=== PATIENT | female | born 1940 | race Caucasian/White ===

== ENCOUNTER 2018-01-21 15:13 | Emergency (ER) | payer OTHER ==
[~2018-01-21] VITALS: Ht 162.6 cm; Wt 61.2 kg
--- NOTE | 2018-01-21 15:13 | NUR ---
ADMIT PT IN RM 1A , A 77 YO FEMALE FROM HOME WITH A CHIEF C/O A SUDDEN CHANGE OF THOUGHT PROCESS FOR A FEW MINUTES. AWAKE, ALERT AND ORIENTEDX3. SPEECH IS CLEAR, NO NEUR0 DEFFECIT NOTED. DENIES ANY HEADACHE NOTED.
--- NOTE | 2018-01-21 15:20 | NUR ---
PT IS A DIFFICULT STICK, TRIED IV START 2X BUT INFILTRATES EASILY.
--- NOTE | 2018-01-21 15:20 | NUR ---
EKG DONE AT THE BEDSIDE. SR, NO ECTOPY. NO CHEST PAINS NOTED.
--- NOTE | 2018-01-21 15:30 | NUR ---
SEEN AND EXAMINED BY DR MILIAN WITH NEW ORDERS.
[2018-01-21] MEDS ORDERED: [UNRECOGNIZED DRUG - REMARK] (15:43)
[2018-01-21] MEDS ORDERED: [UNRECOGNIZED DRUG - REMARK] (15:43)
[2018-01-21] MEDS ORDERED: [UNRECOGNIZED DRUG - REMARK] (15:43)
[2018-01-21] MEDS ORDERED: [UNRECOGNIZED DRUG - REMARK] (15:43)
[2018-01-21] MEDS ORDERED: [UNRECOGNIZED DRUG - REMARK] (15:43)
[2018-01-21] MEDS ORDERED: [UNRECOGNIZED DRUG - REMARK] (15:43)
[2018-01-21] MEDS ORDERED: [UNRECOGNIZED DRUG - REMARK] (15:43)
[2018-01-21] MEDS ORDERED: LOSARTAN (15:43)
[2018-01-21] MEDS ORDERED: [UNRECOGNIZED DRUG - OTHER] (15:43)
[2018-01-21] MEDS ORDERED: [UNRECOGNIZED DRUG - REMARK] (15:43)
[2018-01-21] MEDS ORDERED: [UNRECOGNIZED DRUG - REMARK] (15:43)
[2018-01-21] MEDS ORDERED: [UNRECOGNIZED DRUG - REMARK] (15:43)
[2018-01-21] MEDS ORDERED: [UNRECOGNIZED DRUG - REMARK] (15:43)
--- NOTE | 2018-01-21 15:55 | NUR ---
[facility] IS ST[facility].
[2018-01-21 15:59] LABS: BASOPHILS # (AUTO) 0.1 K/uL (0.0-8.0); EOSINOPHILS # (AUTO) 0.1 K/uL (0.0-0.7); EOSINOPHILS % (AUTO) 1.6 % (0.0-7.0); HEMOGLOBIN 11.6 g/dL (10.9-14.3); LYMPHOCYTES # (AUTO) 2.1 K/uL (20.0-40.0); LYMPHOCYTES % (AUTO) 34.4 % (20.5-51.5); MEAN CORPUSCULAR HEMOGLOBIN 32.9 uug (24.7-32.8); MEAN CORPUSCULAR HGB CONC 35 g/dL (32.3-35.6); MEAN CORPUSCULAR VOLUME 93.8 fL (75.5-95.3); MONOCYTES # (AUTO) 0.6 K/uL (2.0-10.0); MONOCYTES % (AUTO) 10.1 % (0.0-11.0); NEUTROPHILS # (AUTO) 3.2 K/uL (1.8-8.9); NEUTROPHILS % (AUTO) 52.9 % (38.5-71.5); PLATELET COUNT (AUTO) 282 K/uL (179-408); RED BLOOD CELL COUNT(AUTO) 3.52 MIL/uL (3.63-4.92); WHITE BLOOD COUNT (AUTO) 6.1 K/uL (3.8-11.8)
[2018-01-21 16:03] LABS: CARBON DIOXIDE 28 mmol/L (21-32); CHLORIDE 104 mmol/L (98-107); CREATININE 1.2 mg/dL (0.6-1.3); GLUCOSE 101 mg/dL (74-106); POTASSIUM 4.4 mmol/L (3.5-5.1); UREA NITROGEN, BLOOD 25 mg/dL (7-18)
[2018-01-21 16:09] LABS: ALANINE AMINOTRANSFERASE 22 U/L (14-59); ALKALINE PHOSPHATASE 78 U/L (50-136); ASPARTATE AMINOTRANSFERASE 14 U/L (15-37); BILIRUBIN,TOTAL 0.3 mg/dL (0.2-1.0); CREATINE KINASE, TOTAL 58 U/L (26-192); MAGNESIUM 1.8 mg/dL (1.8-2.4); TOTAL PROTEIN, SERUM 6.6 g/dL (6.4-8.2)
[2018-01-21 16:34] LABS: THYROID STIMULATING HORMONE 2.172 mIU/mL (0.358-3.740)
--- NOTE | 2018-01-21 16:40 | NUR ---
Called [facility] per md request.
--- NOTE | 2018-01-21 16:51 | NUR ---
Rashaad BONNER spoke to DR Salcido re [facility] and [place].
--- NOTE | 2018-01-21 17:00 | NUR ---
IV START X5 ATTEMPTS. ABLE TO INSERT ONE ON LEFT FA G22.
--- NOTE | 2018-01-21 17:50 | NUR ---
PT BEING PROCESSED TO BE TRANSFERRED TO [facility]. AWAITING FOR THE ETA.
[2018-01-21] MEDS ORDERED: ASPIRIN 81 MG TAB.CHEW PO ONE (18:09)
[2018-01-21] MEDS ORDERED: ASPIRIN 81 MG TAB.CHEW ONE (18:15)
--- NOTE | 2018-01-21 18:15 | NUR ---
PT GIVEN ASPIRIN 81MG TO CHEW PER MD ORDER. VSS. NO NEURO DEFICIT NOTED.
--- NOTE | 2018-01-21 18:20 | NUR ---
REPORT GIVEN TO L[facility]. PT BEING PICKED UP TO GO TO [facility].
--- NOTE | 2018-01-21 18:25 | NUR ---
[facility] CONDITION STABLE.
== END 2018-01-21 18:25 | disposition short-term general hospital (02) ==
LOC: ER 15:13
DX: G45.9 Transient cerebral ischemic attack, unspecified (principal); R56.9 Unspecified convulsions; Z79.891 Long term (current) use of opiate analgesic; Z79.899 Other long term (current) drug therapy
CPT/HCPCS: 36415; 70030-TC; 70450; 71045; 83735; 84443; 85025; 85610; 93005; A4663

== ENCOUNTER 2018-03-07 16:35 | Emergency (ER) | payer OTHER ==
[~2018-03-07] VITALS: Ht 162.6 cm; Wt 61.2 kg
[~2018-03-07 16:35] MED LIST: LOSARTAN; [UNRECOGNIZED DRUG - OTHER]; [UNRECOGNIZED DRUG - REMARK]; [UNRECOGNIZED DRUG - REMARK]; [UNRECOGNIZED DRUG - REMARK]; [UNRECOGNIZED DRUG - REMARK]; [UNRECOGNIZED DRUG - REMARK]; [UNRECOGNIZED DRUG - REMARK]; [UNRECOGNIZED DRUG - REMARK]; [UNRECOGNIZED DRUG - REMARK]; [UNRECOGNIZED DRUG - REMARK]; [UNRECOGNIZED DRUG - REMARK]
[2018-03-07] MEDS ORDERED: MEMA10TA PO (16:53)
[2018-03-07] MEDS ORDERED: CLON1PAT TD (16:53)
[2018-03-07] MEDS ORDERED: ALEN70TA3 PO (16:56)
[2018-03-07] MEDS ORDERED: OMEP20TA20 PO (16:56)
[2018-03-07] MEDS ORDERED: TRAZ-144 PO (16:56)
[2018-03-07] MEDS ORDERED: AMLO5TAB4 PO (16:56)
[2018-03-07] MEDS ORDERED: VENL37.55 PO (16:56)
[2018-03-07] MEDS ORDERED: LOSA50TA21 PO (16:56)
--- NOTE | 2018-03-07 17:01 | NUR ---
Patient discharged to home in stable conditon with brisk steady gait. Written and verbal after care instructions given to patient and patient's private caregiver. Patient and caregiver verbalized understanding of instructions.
== END 2018-03-07 17:04 | disposition home or self-care (01) ==
LOC: ER 16:36
DX: G51.0 Bell's palsy (principal); I10 Essential (primary) hypertension; Z79.891 Long term (current) use of opiate analgesic; Z79.899 Other long term (current) drug therapy
CPT/HCPCS: 99283; A4663